=== PATIENT | male | born 1945 | race Caucasian/White ===

== ENCOUNTER 2016-06-15 12:00 | Emergency (ER) | payer OTHER ==
[~2016-06-15] VITALS: Ht 177.8 cm; Wt 73.5 kg
--- NOTE | 2016-06-15 12:42 | ED GI/GU/ABDOMINAL COMPLAINT ---
History of Present Illness General Chief Complaint: Male Genitourinary Problems Stated Complaint: URINARY RETENTION Source: patient, family, old records Exam Limitations: no limitations Vital Signs & Intake/Output Vital Signs & Intake/Output Vital Signs Date Time Temp Pulse Resp B/P Pulse O2 O2 Flow FiO2 Ox Delivery Rate 06/15 1403 60 16 115/58 96 Room Air 06/15 1304 98.5 58 18 116/56 04 1206 98.5 58 18 116/56 96 Room Air Room Air Allergies Coded Allergies: No Known Allergies (06/15/16) Reconcile Medications Benzonatate 100 MG CAPSULE 1 CAP PO TID UNK (Reported) Finasteride (Proscar) 5 MG TABLET 1 TAB PO DAILY BPH Triage Note: TRIAGE: 70 Y/O MALE PRESENTS C/O URIANRY RETENTION ADN 3-06/24 PRESSURE. ALSO C/O ?HEMORRHOID PAIN. HISTORY OF URINARY RETENTION AND ENLARGED PROSTATE. "TOOK CIALIS THIS MORNING INSTRUCTED BY DR ROBINS FOR CASES OF RETENTION." Triage Nurses Notes Reviewed? yes Onset: Morning Duration: hour(s):, constant, continues in ED Timing: recent history Quality/Severity: fullness, moderate Location: suprapubic Radiation: no radiation Activities at Onset: none Prior Abdominal Problems: similar symptoms Past Sexual History: Unobtainable at this time No Modifying Factors: none Associated Symptoms: abdominal pain, dysuria, urinary frequency HPI: 1 day prior to admission patient drank champagne that has caused him issues with urinary retention in the past. He notes since this time his urinary stream is decreased with discomfort when voiding. This morning he took Cialis as prescribed by urologist with continued urinary frequency and hesitancy. He denies fever chills nausea vomiting diarrhea chest pain cough shortness of breath headache rash bleeding. Past History Travel History Traveled to [place] past 21 day No Medical History Any Pertinent Medical History? see below for history Renal: URINARY RETENTION Surgical History Surgical History: non-contributory Psychosocial History What is your primary language [place] Tobacco Use: Never used ETOH Use: occasional use Illicit Drug Use: denies illicit drug use Family History Hx Contributory? No Review of Systems Review of Systems Constitutional: Reports: no symptoms. EENTM: Reports: no symptoms. Respiratory: Reports: no symptoms. Cardiovascular: Reports: no symptoms. GI: Reports: no symptoms. Genitourinary: Reports: see HPI, frequency, hesitation, pain, urgency. Musculoskeletal: Reports: no symptoms. Skin: Reports: no symptoms. Neurological/Psychological: Reports: no symptoms. Hematologic/Endocrine: Reports: no symptoms. Immunologic/Allergic: Reports: no symptoms. All Other Systems: Reviewed and Negative Physical Exam Physical Exam General Appearance: well developed/nourished, alert, awake, anxious, mild distress Head: atraumatic, normal appearance Eyes: Bilateral: normal appearance, PERRL, EOMI, normal inspection. Ears, Nose, Throat, Mouth: hearing grossly normal, moist mucous membrane Neck: normal inspection, supple, full range of motion, normal alignment Respiratory: normal breath sounds, chest non-tender, no respiratory distress, quiet respiration, lungs clear Cardiovascular: regular rate/rhythm, normal peripheral pulses, norml femoral pulses equa Peripheral Pulses: 4+ carotid (R), 4+ carotid (L) Gastrointestinal: normal bowel sounds, soft, non-tender, no organomegaly Male Genitals: normal genitalia Back: normal inspection, normal range of motion Extremities: normal range of motion, no ligament instability Neurologic/Psych: no motor/sensory deficits, awake, alert, oriented x 3, normal gait, 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 No Severe Sepsis Present: No Septic Shock Present: No Progress Differential Diagnosis: urinary retention, urethritis, UTI/pyelo Plan of Care: Orders Procedure Date/time Status CULTURE,URINE 06/15 123 Active URINALYSIS 06/15 1235 Complete Laboratory Tests 06/15/16 1325: Urine Color YEL, Urine Clarity CLEAR, Urine pH 6.0, Ur Specific [place] 1.020, Urine Protein NEG, Urine Ketones NEG, Urine Nitrite NEG, Urine Bilirubin NEG, Urine Urobilinogen 0.2, Ur Leukocyte Esterase NEG, Ur Microscopic SEDIMENT EXAMINED, Urine RBC RARE, Urine Mucus FEW, Urine Hemoglobin TRACE-INTACT H, Urine Glucose NEG Microbiology 06/15 1325 URINE ROUT: Urine Culture - RECD Initial ED EKG: none Departure Departure Time of Disposition: 1405 Disposition: HOME OR SELF CARE Condition: Stable Clinical Impression Primary Impression: Acute urinary retention Referrals: SHIMON PHAN,KENDALL HOWARD MD (PCP/Family) Departure Forms: Customer Survey General Discharge Information Prescriptions: Current Visit Scripts Finasteride (Proscar) 1 TAB PO DAILY #30 TAB
[2016-06-15] MEDS ORDERED: BENZONATATE100 M1 PO (13:38)
[2016-06-15] MEDS ORDERED: PROSCAR5 M1 PO (13:44)
[2016-06-15 14:03] VITALS: BP 115/58
== END 2016-06-15 14:12 ==
LOC: ERH 12:00
DX: R33.9 Retention of urine, unspecified (principal)
CPT/HCPCS: 81001; 87086

== ENCOUNTER 2017-06-25 10:47 | Inpatient (IN) | payer OTHER ==
[~2017-06-25] VITALS: Ht 177.8 cm; Wt 84.0 kg
[~2017-06-25 10:47] MED LIST: BENZONATATE100 M1 PO; PROSCAR5 M1 PO
--- NOTE | 2017-06-25 11:56 | ED GI/GU/ABDOMINAL COMPLAINT ---
History of Present Illness General Chief Complaint: Male Genitourinary Problems Stated Complaint: PRESSURE AND BACK PAIN Source: patient, family Exam Limitations: no limitations Vital Signs & Intake/Output Vital Signs & Intake/Output Vital Signs Date Time Temp Pulse Resp B/P B/P Pulse O2 O2 Flow FiO2 Mean Ox Delivery Rate 06/25 1905 110/70 06/25 1722 100/62 06/25 1648 98.2 84 18 85/47 100 Room Air 06/25 1437 75 20 106/51 96 Room Air 06/25 1428 99.4 06/25 1223 97 06/25 1053 98.6 80 20 105/58 98 Room Air Allergies Coded Allergies: No Known Allergies (06/15/16) Reconcile Medications No Known Home Medications Triage Note: PT C/O URINARY RETENTION. STATES HX OF SAME AND WAS JUST AT [facility] AND GAVE A SAMPLE FOR ANALYSIS BUT WAS WAITING TOO LONG TO BE SEEN AND LEFT TO COME HERE. PT OF DR HEARN. STATES THROUGHOUT THE NIGHT UP EVERY 10 MINUTES TO URINATE BUT ONLY A TINY AMOUNT. STATES BURNING WITH URINATION Triage Nurses Notes Reviewed? yes Onset: Gradual Duration: hour(s): Timing: single episode today Quality/Severity: moderate Severity Numbers: 8 Location: right lower back, penile HPI: 71YO MALE presents to ED complaining of dysuria beginning this morning. Patient describes pain as sharp, 8/10, constant in penile area. Patient reports right sided back pain as well. Patient was seen at [facility] this morning, had UA performed and came here because the wait time was too long. Patient has had similar symptoms in the past which he believes went away after IV antibiotics, one year ago he required catheterization to urinate. Patient states after this he followed up with urologist Dr. Crisostomo however has not required urology follow-up since then. The patient denies abdominal pain, nausea, vomiting, constipation, fevers, chills. (Paige August) Past History Travel History Traveled to [place] past 21 day No Medical History Any Pertinent Medical History? see below for history Renal: URINARY RETENTION Surgical History Surgical History: non-contributory Psychosocial History What is your primary language [place] Tobacco Use: Never used ETOH Use: denies use Illicit Drug Use: denies illicit drug use Family History Hx Contributory? No (Paieg August) Review of Systems Review of Systems Constitutional: Reports: no symptoms. EENTM: Reports: no symptoms. Respiratory: Reports: no symptoms. Cardiovascular: Reports: no symptoms. GI: Reports: see HPI. Genitourinary: Reports: see HPI. Musculoskeletal: Reports: see HPI. Skin: Reports: no symptoms. Neurological/Psychological: Reports: no symptoms. Hematologic/Endocrine: Reports: no symptoms. Immunologic/Allergic: Reports: no symptoms. All Other Systems: Reviewed and Negative (Nadine CRUZ,Paige Balderrama) Physical Exam Physical Exam General Appearance: well developed/nourished, no apparent distress, alert, awake Head: atraumatic, normal appearance Eyes: Bilateral: normal appearance. Ears, Nose, Throat, Mouth: hearing grossly normal Neck: normal inspection, supple, full range of motion Respiratory: normal breath sounds, no respiratory distress, lungs clear Cardiovascular: regular rate/rhythm Gastrointestinal: normal bowel sounds, soft, non-tender, no organomegaly Rectal: performed by Dr. Rodríguez Back: normal inspection, normal range of motion, no CVA tenderness Extremities: normal range of motion Neurologic/Psych: awake, alert, oriented x 3 Skin: intact, normal color, warm/dry Core Measures ACS in differential dx? No Sepsis Present: No Sepsis Focused Exam Completed? No (Nadine CRUZ,Paige Balderrama) Progress Differential Diagnosis: appendicitis, bowel obstruction, cholecystitis, diverticulitis, gastritis, hernia, inflamm bowel dis, prostatitis, pyelonephritis, SBO, STD, ureterolithiasis, urinary retention, urethritis, UTI/ pyelo Plan of Care: Orders Procedure Date/time Status Heart Healthy Diet 06/26 B Active CBC WITHOUT DIFFERENTIAL 06/26 0600 Active BASIC ELECTROLYTES PLUS BUN&CR 06/26 0600 Active Patient Data 06/25 1739 Active ED Holding Orders 06/25 1735 Active Admit to inpatient 06/25 1735 Active Vital Signs 06/25 1735 Active Code Status 06/25 1735 Active BLOOD CULTURE 06/25 1559 Active Add-on Test (ER Only) 06/25 1421 Active Intake & Output 06/25 1223 Active LACTIC ACID 06/25 1215 Complete CULTURE,URINE 06/25 1154 Active URINALYSIS 06/25 1154 Complete COMPREHENSIVE METABOLIC PANEL 06/25 1154 Complete CBC WITHOUT DIFFERENTIAL 06/25 1154 Complete Current Medications Sig/Audra Start time Last Medication Dose Stop Time Status Admin Morphine Sulfate 4 MG ONCE ONE 06/25 1914 UNVr 06/25 (Morphine) 06/25 Laboratory Tests 06/25/17 1613: Urine Color YEL, Urine Clarity CLDY H, Urine pH 6.0, Ur Specific [place] 1.025, Urine Protein 100 H, Urine Ketones TRACE H, Urine Nitrite NEG, Urine Bilirubin NEG, Urine Urobilinogen 0.2, Ur Leukocyte Esterase LARGE H, Ur Microscopic SEDIMENT EXAMINED, Urine RBC 50-75 H, Urine WBC PACKD H, Ur Epithelial Cells RARE, Urine Bacteria PACKD H, Urine Hemoglobin LARGE H, Urine Glucose NEG 06/25/17 1215: Anion Gap 13, Estimated GFR > 60, BUN/Creatinine Ratio 18.0, Glucose 108 H, Lactic Acid 1.7, Calcium 9.1, Total Bilirubin 1.2, AST 20, ALT 35, Alkaline Phosphatase 46, Total Protein 6.7, Albumin 3.9, Globulin 2.8, Albumin/Globulin Ratio 1.4, CBC w Diff MAN DIFF ORDERED, RBC 4.83, MCV 95.4 H, MCH 30.4, MCHC 31.8 L, RDW 13.5, MPV 8.5, Gran % 92.4 H, Lymphocytes % 2.3 L, Monocytes % 5.1, Eosinophils % 0.1, Basophils % 0.1, Absolute Granulocytes 17.5 H, Segmented Neutrophils 85 H, Band Neutrophils 7 H, Absolute Lymphocytes 0.4 L, Lymphocytes 3 L, Monocytes 4, Absolute Monocytes 1.0 H, Absolute Eosinophils 0 , Basophils 1, Absolute Basophils 0, Platelet Estimate ADEQUATE, Normocytic RBCs VERIFIED, Normochromic RBCs VERIFIED Microbiology 06/25 1624 BLOOD: Blood Culture - RECD 06/26 1619 BLOOD: Blood Culture - RECD 06/25 161 URINE ROUT: Urine Culture - RECD Dr. Rodríguez performed patient's rectal exam and reported no significant tenderness of prostate palpation. Spoke with Dr. Crisostomo regarding this patient. Admitted for infectious process. IV antibiotics and IV fluids. No surgical necessity required. Patient was able to give a urine sample. Patient started on IV ciprofloxacin. He is on second liter of IV fluids. Spoke with Dr. Galan regarding the patient - he will come see and evaluate the patient here in the emergency department. He recommends IV gentamicin and ceftriaxone. Blood pressure responding well to IV fluids. Patient stable for general medicine admission. Diagnostic Imaging: Viewed by Me: CT Scan. Discussed w/RAD: CT Scan. Radiology Impression: PATIENT: GENA CHAVEZ PRESENT AGE: 71 PATIENT ACCOUNT NO: [id number] : 46 LOCATION: [facility] ORDERING PHYSICIAN: Paige CRUZ SERVICE DATE: 06/25/17 EXAM TYPE: CAT - CT ABD & PELVIS W/O IV CONTRAS EXAMINATION: CT ABDOMEN AND PELVIS WITHOUT CONTRAST CLINICAL INFORMATION: Penile pain, right back pain COMPARISON: None TECHNIQUE: Multidetector volumetric imaging was performed from the superior aspect of the liver through the pubic symphysis. Sagittal and coronal reformatted images were obtained on the technologist's workstation. DLP: 300 mGy -cm FINDINGS: A radiodensity seen projecting over the right midlung on the pricing strategist image is external to patient. LUNG BASES: There is mild bilateral lower lobe dependent atelectasis. Trace aortic valve calcification. LIVER, GALLBLADDER, AND BILIARY TREE: The noncontrast liver is normal in size, shape, and attenuation. The gallbladder is surgically absent. The common bile duct is mildly prominent, not unexpected given prior cholecystectomy. PANCREAS: Unremarkable. SPLEEN: Normal size. Scattered calcified granulomas. ADRENAL GLANDS: Unremarkable. KIDNEYS AND URETERS: No discrete collecting system calcifications. No hydronephrosis or hydroureter. No evidence of ureterolithiasis. The kidneys are normal in contour. No perinephric stranding. Small low-density lesion noted in the upper pole of the right kidney, incompletely characterized but most likely representing a cyst. BLADDER: Unremarkable. No bladder calculi. GASTROINTESTINAL TRACT: The small and large bowel are unremarkable. The appendix is unremarkable. ABDOMINAL WALL: No significant hernia is appreciated. LYMPH NODES: No evidence of pathologic lymphadenopathy on this limited noncontrast examination. VASCULAR: Abdominal aorta is normal in caliber. There is very minimal atherosclerotic calcification. PELVIC VISCERA: The prostate gland is enlarged approximately 7 cm in diameter. There is fat stranding or adjacent to the prostate gland and rectum. There is a 1.4 cm ovoid calcification in the pelvic cul-de-sac of uncertain etiology but could be seen with remotely torsed epiploic appendage. Bilateral vasectomy clips. OSSEOUS STRUCTURES: Mild degenerative changes of the spine. IMPRESSION: No evidence of nephrolithiasis or ureterolithiasis. No hydronephrosis. Prostatomegaly. Additionally, there are inflammatory changes around the prostate gland and rectum which could represent prostatitis or proctitis. Small low-density lesion in the upper pole of the right kidney is incompletely characterized but most likely represents a cyst. Additional incidental findings as noted above. DICTATED BY: Claire Naranjo MD DATE/TIME DICTATED:06/25/171345 [employer]:MATT DATE/TIME TRANSCRIBED:1345 CONFIDENTIAL, DO NOT COPY WITHOUT APPROPRIATE AUTHORIZATION. < Electronically signed in Other Vendor System> SIGNED BY: Claire Naranjo MD 06/25/17 1415 Initial ED EKG: none (Nadine CRUZ,Paige Balderrama) Departure Departure Disposition: STILL A PATIENT Condition: Stable Clinical Impression Primary Impression: Prostatitis, acute Secondary Impressions: Dysuria Referrals: Gentry Crespo MD (PCP/Family) Departure Forms: Customer Survey General Discharge Information Prescriptions: Current Visit Scripts No Known Home Medications Admission Note Spoke With: Angelia PHAN,Cruz Castillo Documentation of Exam: Documentation of any treatments & extenuating circumstances including Concerns Regarding Discharge (functional status, medication knowledge or non-compliance, living conditions, etc.) that warrant an admission rather than observation: [ Acute likely prostatitis requiring IV antibiotics, IV fluids, urology consult, repeat labs, follow up with blood cultures, premature discharge medically unsafe ] (Paige August) Departure Comments 06/25/17 I saw and personally examined the patient and I agree with the PAs evaluation. Rectal exam was nontender prostate, guaiac negative stool. (Ciro Rodríguez DO)
[2017-06-25 12:24] LABS: ABSOLUTE BASOPHIL COUNT 0 /CUMM (0.0-0.2); ABSOLUTE EOSINOPHIL COUNT 0 /CUMM (0.0-0.7); ABSOLUTE GRANULOCYTE CT 17.5 /CUMM (1.4-6.5); ABSOLUTE LYMPH COUNT 0.4 /CUMM (1.2-3.4); BASOPHIL % 0.1 % (0.0-2.0); EOSINOPHIL % 0.1 % (0-5); HEMATOCRIT 46.1 % (42-52); MEAN CORPUSCULAR HGB 30.4 PG (27.0-31.0); MEAN CORPUSCULAR HGB CONC 31.8 G/DL (33.0-37.0); MEAN CORPUSCULAR VOLUME 95.4 FL (80.0-94.0); MEAN PLATELET VOLUME 8.5 FL (7.4-10.4); PLATELET COUNT 198 /CUMM (130-400); RBC DISTRIBUTION WIDTH 13.5 % (11.5-14.5); RED BLOOD CELL CT 4.83 /CUMM (4.70-6.10)
[2017-06-25 12:25] LABS: GRANULOCYTE % 92.4 % (42.2-75.2); WHITE BLOOD CELL COUNT 18.9 /CUMM (4.8-10.8)
--- NOTE | 2017-06-25 14:15 | CT SCAN REPORT ---
EXAMINATION: CT ABDOMEN AND PELVIS WITHOUT CONTRAST CLINICAL INFORMATION: Penile pain, right back pain COMPARISON: None TECHNIQUE: Multidetector volumetric imaging was performed from the superior aspect of the liver through the pubic symphysis. Sagittal and coronal reformatted images were obtained on the technologist's workstation. DLP: 300 mGy-cm FINDINGS: A radiodensity seen projecting over the right midlung on the staff design engineer image is external to patient. LUNG BASES: There is mild bilateral lower lobe dependent atelectasis. Trace aortic valve calcification. LIVER, GALLBLADDER, AND BILIARY TREE: The noncontrast liver is normal in size, shape, and attenuation. The gallbladder is surgically absent. The common bile duct is mildly prominent, not unexpected given prior cholecystectomy. PANCREAS: Unremarkable. SPLEEN: Normal size. Scattered calcified granulomas. ADRENAL GLANDS: Unremarkable. KIDNEYS AND URETERS: No discrete collecting system calcifications. No hydronephrosis or hydroureter. No evidence of ureterolithiasis. The kidneys are normal in contour. No perinephric stranding. Small low-density lesion noted in the upper pole of the right kidney, incompletely characterized but most likely representing a cyst. BLADDER: Unremarkable. No bladder calculi. GASTROINTESTINAL TRACT: The small and large bowel are unremarkable. The appendix is unremarkable. ABDOMINAL WALL: No significant hernia is appreciated. LYMPH NODES: No evidence of pathologic lymphadenopathy on this limited noncontrast examination. VASCULAR: Abdominal aorta is normal in caliber. There is very minimal atherosclerotic calcification. PELVIC VISCERA: The prostate gland is enlarged approximately 7 cm in diameter. There is fat stranding or adjacent to the prostate gland and rectum. There is a 1.4 cm ovoid calcification in the pelvic cul-de-sac of uncertain etiology but could be seen with remotely torsed epiploic appendage. Bilateral vasectomy clips. OSSEOUS STRUCTURES: Mild degenerative changes of the spine. IMPRESSION: No evidence of nephrolithiasis or ureterolithiasis. No hydronephrosis. Prostatomegaly. Additionally, there are inflammatory changes around the prostate gland and rectum which could represent prostatitis or proctitis. Small low-density lesion in the upper pole of the right kidney is incompletely characterized but most likely represents a cyst. Additional incidental findings as noted above.
--- NOTE | 2017-06-25 17:13 | History & Physical ---
John PHAN,[facility] 06/25/17 1713: General Information and HPI MD Statement: I have seen and personally examined GENA CHAVEZ and documented this H&P. The patient is a 71 year old M who presented with a patient stated chief complaint of [urinary retention and dysuria]. Source of Information: patient, old records Exam Limitations: no limitations History of Present Illness: The patient is 71-year-old gentleman with no significant past medical history who presented to [place] ED on 06/25 with complaint of dysuria. The patient is healthy gentleman who runs 5 miles a day. Does not have any significant past medical history other than prostate biopsy a year ago because of elevated PSA which turned out to be negative. The patient woke up about 5 AM the morning and had severe pain while urination. Patient states that he was having suprapubic tenderness and sensation of incomplete voiding. He reports a sharp burning pain in the shaft of the penis, nonradiating 10 out of 10. Patient reports dribbling at the end of urination and pressure sensation at the start of urination. Patient went up [facility] earlier this morning. UA was done over there. But he left because he did not want to wait any longer. Review of system is positive for chills. Denies any other symptoms. Allergies/Medications Allergies: Coded Allergies: No Known Allergies (06/15/16) Home Med list No Known Home Medications Past History Travel History Traveled to [place] past 21 day No Medical History Renal: URINARY RETENTION Surgical History Surgical History: non-contributory Past Family/Social History Family History Relations & Conditions if any Relation not specified for: *No pertinent family history Psychosocial History Who Do You Live With? spouse Services at Home: None Primary Language: Finnish ETOH Use: denies use Illicit Drug Use: denies illicit drug use Review of Systems Review of Systems Constitutional: Reports: see HPI, chills. Cardiovascular: Reports: no symptoms. Respiratory: Reports: no symptoms. Genitourinary: Reports: no symptoms. Exam & Diagnostic Data Last 24 Hrs of Vital Signs/I&O Vital Signs Date Time Temp Pulse Resp B/P B/P Pulse O2 O2 Flow FiO2 Mean Ox Delivery Rate 06/25 1905 110/70 06/25 1722 100/62 06/25 1648 98.2 84 18 85/47 100 Room Air 06/25 1437 75 20 106/51 96 Room Air 06/25 1428 99.4 06/25 1223 97 06/25 1053 98.6 80 20 105/58 98 Room Air Intake & Output 06/25 1600 06/25 0800 06/25 0000 Intake Total 1000 Output Total Balance 1000 Intake, IV 1000 Patient 160 lb Weight Weight Reported by Patient Measurement Method Physical Exam General Appearance Alert, Oriented X3, Cooperative, No Acute Distress HEENT Atraumatic Lungs Clear to Auscultation Abdomen Normal Bowel Sounds, suprapubic tenderness Neurological Normal Speech Extremities No Edema Sepsis Peripheral Pulse Location: Radial Sepsis Peripheral Pulse Exam: Normal Sepsis Cap Refill Exam: <2 Sec Rectal Guiac Negative, performed by ED physician, no tenderness on palpation Last 24 Hrs of Labs/Everardo: Laboratory Tests 06/25/17 1613: Urine Color YEL, Urine Clarity CLDY H, Urine pH 6.0, Ur Specific [place] 1.025, Urine Protein 100 H, Urine Ketones TRACE H, Urine Nitrite NEG, Urine Bilirubin NEG, Urine Urobilinogen 0.2, Ur Leukocyte Esterase LARGE H, Ur Microscopic SEDIMENT EXAMINED, Urine RBC 50-75 H, Urine WBC PACKD H, Ur Epithelial Cells RARE, Urine Bacteria PACKD H, Urine Hemoglobin LARGE H, Urine Glucose NEG 06/25/17 1215: Anion Gap 13, Estimated GFR > 60, BUN/Creatinine Ratio 18.0, Glucose 108 H, Lactic Acid 1.7, Calcium 9.1, Total Bilirubin 1.2, AST 20, ALT 35, Alkaline Phosphatase 46, Total Protein 6.7, Albumin 3.9, Globulin 2.8, Albumin/Globulin Ratio 1.4, CBC w Diff MAN DIFF ORDERED, RBC 4.83, MCV 95.4 H, MCH 30.4, MCHC 31.8 L, RDW 13.5, MPV 8.5, Gran % 92.4 H, Lymphocytes % 2.3 L, Monocytes % 5.1, Eosinophils % 0.1, Basophils % 0.1, Absolute Granulocytes 17.5 H, Segmented Neutrophils 85 H, Band Neutrophils 7 H, Absolute Lymphocytes 0.4 L, Lymphocytes 3 L, Monocytes 4, Absolute Monocytes 1.0 H, Absolute Eosinophils 0 , Basophils 1, Absolute Basophils 0, Platelet Estimate ADEQUATE, Normocytic RBCs VERIFIED, Normochromic RBCs VERIFIED Microbiology 06/25 162 BLOOD: Blood Culture - RECD 04/11 1620 BLOOD: Blood Culture - RECD 06/25 1613 URINE ROUT: Urine Culture - RECD Diagnostic Data Other Results CT ABD & PELVIS W/O IV CONTRAST No evidence of nephrolithiasis or ureterolithiasis. No hydronephrosis. Prostatomegaly. Additionally, there are inflammatory changes around the prostate gland and rectum which could represent prostatitis or proctitis. Small low-density lesion in the upper pole of the right kidney is incompletely characterized but most likely represents a cyst. Assessment/Plan Assessment: The patient is 71-year-old gentleman with no significant past medical history who presented to [place] ED on 06/25 with complaint of dysuria. Admission vitals BP on softer side 85/47 Admission labs significant for leukocytosis up to 18.9 with left shift, 7 bands. UA is positive for large leukocyte esterase, packed with WBCs and packed with bacteria. Imaging findings dictated above The patient is being admitted to general medicine floor and treated and evaluated for following conditions #Sepsis 2/2 Acute prostatitis Patient presentation with leukocytosis and, bandemia, dirty UA and CT scan finding of prostatomegaly with inflammation, consistent with acute prostatitis. He was febrile as well in ED. SIRS positive, qSOFA score (SPBP <100) 1 point not high risk. Of note pt is a runner so his BP dose run on the lower side. Ecoli more likely as compared to Gonnorehea/ chlamydia. Pt is in monogamous relationship with his -Admit to gen med -Monitor fever and WBC curve -Follow-up blood cultures and urine culture -IV ciprofloxacin 500 twice a day -Gentle IV hydration -Adequate analgesia, Tylenol for fever -We are going to check postvoid residual for urinary retention and will avoid Foleys -Urology consult has been placed with Dr. Crisostomo Regular Diet/DVT prophylaxis with Lovenox/FC As Ranked By This Provider Problem List: 1. Prostatitis, acute Core Measures/Misc (12/01) Acute Coronary Syndrome ACS Diagnosis: No Congestive Heart Failure Congestive Heart Failure Diagnosis No Cerebrovascular Accident CVA/TIA Diagnosis: No VTE (View Protocol) VTE Risk Factors Age>40 No Mechanical VTE Prophylaxis d/t N/A MechProphylax Ordered No VTE Pharm Prophylaxis d/t NA PharmProphylax ordered Sepsis (View protocol) Sepsis Present: Yes Ruiz PHAN,Corbin 06/25/17 1731: Resident Review Statement Resident Statement: examined this patient, discussed with medical assistant internal medicine, agreed with medical assistant internal medicine Other Findings: 71-year-old gentleman with no known significant past medical history since for evaluation of acute onset of severe symptoms of dysuria and penile pain suggestive of prostatitis in the setting of leukocytosis and CT finding of enlarged prostate. Associated symptoms included chills. denied any recent pelvic fracture . Of note patient has had prostate instrumentation in the past few years and is actively followed by Dr. Crisostomo. Impression * Prostatitis, most likely acute. BPH is always in the differential, however the fevers, severe pain, leukocytosis and bandemia is more suggestive of an acute infectious etiology. * Leukocytosis * Sepsis as evident by positive UA, leukocytosis and a temperature of 102.1 Plan Admit to general medicine floor Continue ciprofloxacin 400 mg IV twice a day as this is a very effective antibiotic regimen for prostatitis in patient of 71 years of age who does not engage in risky sexual behaviour. Coverage is geared towards E.coli and the other comon gram negative. Discontinue ceftriaxone and gentamicin. Adequate IV fluid hydration Adequate pain management Urology consult tomorrow morning Will avoid Russell Galan MD,[facility] 06/25/17 1915: Attending MD Review Statement Attending Statement Attending MD Statement: examined this patient, discuss w/resident/PA/FISH STRINGER ASSEMBLER, agreed w/resident/PA/FISH STRINGER ASSEMBLER, discussed with family, reviewed EMR data (avail), discussed with nursing, discussed with case mgmt, reviewed images, amended to note Attending Assessment/Plan: Seen and examined independently in the emergency room Very healthy gentleman with previous history of enlarged prostate 2 wakes up 5 times at night, previous history of prostate biopsy more than a year ago with elevated PSA came into the hospital with acute onset dysuria. Patient was having difficulty emptying his bladder. He did have a urinalysis done early this morning at [facility] but he didn't want to wait in the emergency room he came into this hospital. Since he is here he did have a CT scan which did show that he may have significant prostatitis initial blood work was suggestive of prostatitis and he is now being admitted. Issues Acute prostatitis with sepsis No clinical evidence suggestive of inflammation of his rectum Enlarged prostate in the past with previous biopsy many years ago rule out malignancy the future Significant leukocytosis with bandemia from sepsis RECOMMENDATION Intravenous fluids Intravenous Cipro Patient has received a dose of gentamicin - we'll await his cultures if needed we'll repeat that tomorrow Check his renal function Tylenol for fever Check post void residue for urine Avoid [facility] consult Check PT/INR Repeat bilirubin and LFTs in the morning
--- NOTE | 2017-06-25 19:15 | Admission Certification ---
Admission Certification Certification Statement - As attending physician, I certify that at the time of - admission, based on clinical presentation, severity of - symptoms, need for further diagnostic testing and - therapeutic interventions, and risk of adverse outcomes - without in-hospital treatment, in my clinical assessment, - this patient requires an acute hospital stay for a minimum - of two nights or longer. I have also considered psychsocial - factors such as support system, advanced age, financial - issues, cognitive issues, and failed out-patient treatments, - past re-admission history, safety of patient, and lack of - compliance as applicable. Specific rationale supporting this admission is: sepsis and prostatitits
[2017-06-25 21:41] VITALS: BP 80/40
[2017-06-26 01:28] VITALS: BP 96/46
[2017-06-26 02:33] VITALS: BP 88/46
[2017-06-26 06:38] VITALS: BP 106/48
[2017-06-26 08:19] LABS: ABSOLUTE BASOPHIL COUNT 0 /CUMM (0.0-0.2); ABSOLUTE EOSINOPHIL COUNT 0.1 /CUMM (0.0-0.7); ABSOLUTE LYMPH COUNT 1.1 /CUMM (1.2-3.4); ABSOLUTE MONOCYTE COUNT 0.9 /CUMM (0.10-0.60); GRANULOCYTE % 89.9 % (42.2-75.2); MEAN CORPUSCULAR HGB CONC 34.2 G/DL (33.0-37.0); WHITE BLOOD CELL COUNT 21.1 /CUMM (4.8-10.8)
[2017-06-26 08:26] LABS: ABSOLUTE GRANULOCYTE CT 18.9 /CUMM (1.4-6.5); BASOPHIL % 0.2 % (0.0-2.0); EOSINOPHIL % 0.3 % (0-5); MEAN CORPUSCULAR HGB 32.6 PG (27.0-31.0); MEAN CORPUSCULAR VOLUME 95.1 FL (80.0-94.0); MEAN PLATELET VOLUME 8.8 FL (7.4-10.4); PLATELET COUNT 147 /CUMM (130-400)
[2017-06-26 08:29] LABS: PT 18.1 SEC (9.4-12.5)
[2017-06-26 08:32] LABS: HEMATOCRIT 36.2 % (42-52)
[2017-06-26 08:54] VITALS: BP 96/50
--- NOTE | 2017-06-26 09:08 | PN- Housestaff ---
Subjective Follow-up For: Sepsis 2/2 Acute prostatitis Subjective: seen and examined. pt walking briskly in the hallway, reports improvement in symptoms, denies pain, has not been taking pain medicatiosn uneventful night fever upto 102 WBC count uptrending 21 H/H and platelet count dropped 2/2 to IV fluid hydartion BC x1 positive for gram negative rods UC positive for gram negative rods Review of Systems Constitutional: Reports: see HPI. Objective Last 24 Hrs of Vital Signs/I&O Vital Signs Date Time Temp Pulse Resp B/P B/P Pulse O2 O2 Flow FiO2 Mean Ox Delivery Rate 06/26 0854 96/50 06/26 0638 98.5 68 20 106/48 94 Room Air 06/26 0233 88/46 06/26 0128 96/46 06/25 2155 99.0 06/25 2141 99.6 64 20 80/40 95 Room Air 06/25 2111 102.1 80 20 90/42 95 Room Air 06/25 1905 110/70 06/25 1722 100/62 06/25 1648 98.2 84 18 85/47 100 Room Air 06/25 1437 75 20 106/51 96 Room Air 06/25 1428 99.4 06/25 1223 97 06/25 1053 98.6 80 20 105/58 98 Room Air Intake & Output 06/26 1600 06/26 0800 06/26 0000 Intake Total 820 150 Output Total Balance 820 150 Intake, IV 700 100 Intake, Oral 120 50 Patient 185 lb Weight Weight Bed scale Measurement Method Physical Exam General Appearance: Alert, Oriented X3, Cooperative Cardiovascular: Normal S1, Normal S2 Lungs: Clear to Auscultation Abdomen: Normal Bowel Sounds, Soft, No Tenderness Neurological: Normal Gait, Normal Speech Current Medications: Current Medications Sig/Audra Start time Last Medication Dose Route Stop Time Status Admin Acetaminophen 0 .STK-MED ONE 06/25 2118 DC PO Acetaminophen 500 MG Q6P PRN 06/25 2014 AC 06/25 PO 2115 Acetaminophen 1,000 MG ONCE ONE 06/25 1699 DC N/A 1 UNIT IV 06/25 1713 Ceftriaxone Sodium 0 .STK-MED ONE 06/25 1918 DC .ROUTE Ceftriaxone Sodium 1,000 MG ONCE ONE 06/25 1714 DC 06/25 IV 06/25 Ciprofloxacin 400 MG Q12H 06/26 0400 AC 06/26 Dextrose/Water 200 ML IV 0351 Ciprofloxacin 400 MG ONCE ONE 06/25 1600 DC 06/25 Dextrose/Water 200 ML IV 06/25 1659 1647 Enoxaparin Sodium 40 MG DAILY 06/26 1000 AC SC Gentamicin Sulfate 100 MG ONE ONE 06/25 1715 DC 06/25 Dextrose/Water 100 ML IV 06/25 1744 2007 Ketorolac 0 .STK-MED ONE 06/25 1305 DC Tromethamine .ROUTE Ketorolac 30 MG ONCE ONE 06/25 1300 DC 06/25 Tromethamine IV 06/25 1301 1350 Morphine Sulfate 2 MG Q4P PRN 06/25 2014 AC IV Morphine Sulfate 0 .STK-MED ONE 06/25 191 DC .ROUTE Morphine Sulfate 4 MG ONCE ONE 06/25 191 DC 06/25 IV 06/25 1916 1918 Morphine Sulfate 0 .STK-MED ONE 06/25 1305 DC .ROUTE Morphine Sulfate 4 MG ONCE ONE 06/25 1300 DC 06/25 IV 06/25 1301 1350 Morphine Sulfate 0 .STK-MED ONE 06/25 1224 DC .ROUTE Morphine Sulfate 2 MG ONCE ONE 06/25 1215 DC 06/25 IV 06/25 1216 1221 Oxycodone HCl 5 MG Q6P PRN 06/25 2014 AC PO Sodium Chloride 1,000 ML Q10H 06/25 2145 AC 06/26 IV 0838 Sodium Chloride 1,000 ML BOLUS ONE 06/25 2145 DC 06/25 IV 06/25 2244 2155 Sodium Chloride 1,000 ML BOLUS ONE 06/25 1700 DC 06/25 IV 06/25 1759 1657 Sodium Chloride 1,000 ML BOLUS ONE 06/25 1215 DC 06/25 IV 06/25 1314 1221 Last 24 Hrs of Lab/Everardo Results Last 24 Hrs of Labs/Mics: Laboratory Tests 06/26/17 0723: Anion Gap 8, Estimated GFR > 60, BUN/Creatinine Ratio 20.0, Total Bilirubin 1.4 H, Direct Bilirubin 0.4, AST 24, ALT 33, Alkaline Phosphatase 38, Total Protein 5.1 L, Albumin 2.6 L, PT 18.1 H, INR 1.65 H, CBC w Diff MAN DIFF ORDERED, RBC 3.80 L, MCV 95.1 H, MCH 32.6 H, MCHC 34.2, RDW 14.0, MPV 8.8, Gran % 89.9 H, Lymphocytes % 5.5 L, Monocytes % 4.1, Eosinophils % 0.3, Basophils % 0.2, Absolute Granulocytes 18.9 H, Segmented Neutrophils 80 H, Band Neutrophils 13 H, Absolute Lymphocytes 1.1 L, Lymphocytes 2 L, Monocytes 4, Absolute Monocytes 0.9 H, Absolute Eosinophils 0.1, Basophils 1, Absolute Basophils 0, Platelet Estimate ADEQUATE, Normocytic RBCs VERIFIED, Normochromic RBCs VERIFIED 06/25/17 1613: Urine Color YEL, Urine Clarity CLDY H, Urine pH 6.0, Ur Specific [place] 1.025, Urine Protein 100 H, Urine Ketones TRACE H, Urine Nitrite NEG, Urine Bilirubin NEG, Urine Urobilinogen 0.2, Ur Leukocyte Esterase LARGE H, Ur Microscopic SEDIMENT EXAMINED, Urine RBC 50-75 H, Urine WBC PACKD H, Ur Epithelial Cells RARE, Urine Bacteria PACKD H, Urine Hemoglobin LARGE H, Urine Glucose NEG 06/25/17 1215: Anion Gap 13, Estimated GFR > 60, BUN/Creatinine Ratio 18.0, Glucose 108 H, Lactic Acid 1.7, Calcium 9.1, Total Bilirubin 1.2, AST 20, ALT 35, Alkaline Phosphatase 46, Total Protein 6.7, Albumin 3.9, Globulin 2.8, Albumin/Globulin Ratio 1.4, CBC w Diff MAN DIFF ORDERED, RBC 4.83, MCV 95.4 H, MCH 30.4, MCHC 31.8 L, RDW 13.5, MPV 8.5, Gran % 92.4 H, Lymphocytes % 2.3 L, Monocytes % 5.1, Eosinophils % 0.1, Basophils % 0.1, Absolute Granulocytes 17.5 H, Segmented Neutrophils 85 H, Band Neutrophils 7 H, Absolute Lymphocytes 0.4 L, Lymphocytes 3 L, Monocytes 4, Absolute Monocytes 1.0 H, Absolute Eosinophils 0 , Basophils 1, Absolute Basophils 0, Platelet Estimate ADEQUATE, Normocytic RBCs VERIFIED, Normochromic RBCs VERIFIED Microbiology 06/25 1624 BLOOD: Blood Culture - RES GRAM NEGATIVE RODS 06/26 1619 BLOOD: Blood Culture - RECD 06/25 161 URINE ROUT: Urine Culture - RES GRAM NEGATIVE RODS Assessment/Plan Assessment: The patient is 71-year-old gentleman with no significant past medical history who presented to [place] ED on 06/25 with complaint of dysuria. Admission vitals BP on softer side 85/47 Admission labs significant for leukocytosis up to 18.9 with left shift, 7 bands. UA is positive for large leukocyte esterase, packed with WBCs and packed with bacteria. Imaging findings consistent with prostatitis He is under evaluation/treatment for following conditions. #Sepsis 2/2 Acute prostatitis Patient presentation with leukocytosis and, bandemia, dirty UA and CT scan finding of prostatomegaly with inflammation, consistent with acute prostatitis. He was febrile overnight. SIRS positive, qSOFA score (SPBP <100) 1 point not high risk. Of note pt is a runner so his BP dose run on the lower side.Ecoli more likely as compared to Gonnorehea/ chlamydia. Pt is in monogamous relationship with his -Admit to gen med -Monitor fever and WBC curve febrile upto 102 white count trending up to 21 -Follow-up blood cultures and urine culture-positive for gram-negative rods, sensitivities pending -On IV cipro, will get ID regarding abx, ceftriaxone?? -Gentle IV hydration -Adequate analgesia, Tylenol for fever -We are going to check postvoid residual for urinary retention and will avoid Foleys -Urology consult has been placed with Dr. Crisostomo Regular Diet/DVT prophylaxis with Lovenox/FC Problem List: 1. Prostatitis, acute Pain Ratin Pain Location: suprapubic and penis Pain Goal: Pain 4 or less Pain Plan: prn Tomorrow's Labs & Rationales: cbc
[2017-06-26 14:40] VITALS: BP 100/60
--- NOTE | 2017-06-26 16:55 | Cons- Infect Disease ---
General Information and HPI Consulting Request Date of Consult: 06/26/17 Requested By: Angelia PHAN,Cruz Castillo Reason for Consult: Positive blood and urine cultures for gram negative rods Source of Information: patient History of Present Illness: This is a 71-year-old man with a history of BPH, with nocturia for several years , admitted on June 25 after presenting to the emergency room because of the acute onset of suprapubic discomfort, difficulty in voiding and dysuria associated with chills. On admission he was afebrile. A rectal exam was apparently nontender. Laboratory data revealed a white blood cell count of 19, 000, with 85 segs and 7 bands, BUN/creatinine 18 and 1.0, with normal liver enzymes, INR 1.65. Urinalysis 50-75 RBCs/packed WBCs. CT of the abdomen and pelvis revealed an enlarged prostate with inflammatory changes around the prostate gland and rectum, with no nephrolithiasis or hydronephrosis. He was given Ceftriaxone and Gentamicin in the emergency room and was then changed to Ciprofloxacin. He developed a fever to 102.1 in the evening but has been afebrile since and he feels improved today with no further dysuria or suprapubic discomfort. This morning one blood culture and his urine culture were reported positive for gram-negative rods. Allergies/Medications Allergies: Coded Allergies: No Known Allergies (06/15/16) Home Med List: No Known Home Medications Past History Travel History Traveled to [place] past 21 day No Medical History Neurological: NONE EENT: NONE Cardiovascular: NONE Respiratory: NONE Gastrointestinal: NONE Hepatic: NONE Musculoskeletal: NONE Psychiatric: NONE Endocrine: NONE Blood Disorders: NONE Cancer(s): NONE PORCELAIN ENAMELER/Reproductive: NONE History of MRSA: No History of VRE: No History of CDIFF: No Isolation History: Standard Influenza Vaccine: 01/01/17 Surgical History Surgical History: non-contributory Family History Relations & Conditions If Any: Relation not specified for: *No pertinent family history Psychosocial History Where Do You Live? Home Who Do You Live With? spouse Services at Home: None Primary Language: Slovak Smoking Status: Former Smoker ETOH Use: denies use Illicit Drug Use: denies illicit drug use Review of Systems Review of Systems Constitutional: Reports: chills. Genitourinary: Reports: dysuria, frequency, hesitation, nocturia, pain. All Other Systems: Reviewed and Negative Exam & Diagnostic Data Last 24 Hrs of Vital Signs/I&O Vital Signs Date Time Temp Pulse Resp B/P B/P Pulse O2 O2 Flow FiO2 Mean Ox Delivery Rate 06/26 1440 99.6 70 20 100/60 96 Room Air 06/26 0854 96/50 06/26 0638 98.5 68 20 106/48 94 Room Air 06/26 0233 88/46 06/26 0128 96/46 06/25 2155 99.0 06/25 2141 99.6 64 20 80/40 95 Room Air 06/25 2111 102.1 80 20 90/42 95 Room Air 06/25 1905 110/70 06/25 1722 100/62 Intake & Output 06/26 1600 06/26 0800 06/26 0000 Intake Total 1600 820 150 Output Total Balance 1600 820 150 Intake, IV 1000 700 100 Intake, Oral 600 120 50 Patient 185 lb Weight Weight Bed scale Measurement Method Physical Exam Other Physical Findings: MAXIMUM TEMPERATURE 102.1. He is awake and alert in no acute distress. Skin reveals no rash. HEENT negative. Neck is supple with no adenopathy. Lungs are clear. Heart regular rhythm with no murmur. Abdomen is soft, nontender with positive bowel sounds. Back no CVA tenderness. Extremities no cyanosis, clubbing or edema. Neuro is without focality. Last 24 Hours of Lab Results: Laboratory Tests 06/26 0723 Chemistry Sodium (137 - 145 mmol/L) 136 L Potassium (3.5 - 5.1 mmol/L) 4.0 Chloride (98 - 107 mmol/L) 105 Carbon Dioxide (22 - 30 mmol/L) 23 Anion Gap (5 - 16) 8 BUN (9 - 20 mg/dL) 22 H Creatinine (0.7 - 1.2 mg/dL) 1.1 Estimated GFR (>60 ml/min) > 60 BUN/Creatinine Ratio (7 - 25 %) 20.0 Total Bilirubin (0.2 - 1.3 mg/dL) 1.4 H Direct Bilirubin (< 0.4 mg/dL) 0.4 AST (17 - 59 U/L) 24 ALT (21 - 72 U/L) 33 Alkaline Phosphatase (< 127 U/L) 38 Total Protein (6.3 - 8.2 g/dL) 5.1 L Albumin (3.5 - 5.0 g/dL) 2.6 L Coagulation PT (9.4 - 12.5 SEC) 18.1 H INR (0.90 - 1.17) 1.65 H Hematology CBC w Diff MAN DIFF ORDERED WBC (4.8 - 10.8 /CUMM) 21.1 H RBC (4.70 - 6.10 /CUMM) 3.80 L Hgb (14.0 - 18.0 G/DL) 12.4 L Hct (42 - 52 %) 36.2 L MCV (80.0 - 94.0 FL) 95.1 H MCH (27.0 - 31.0 PG) 32.6 H MCHC (33.0 - 37.0 G/DL) 34.2 RDW (11.5 - 14.5 %) 14.0 Plt Count (130 - 400 /CUMM) 147 MPV (7.4 - 10.4 FL) 8.8 Gran % (42.2 - 75.2 %) 89.9 H Lymphocytes % (20.5 - 51.1 %) 5.5 L Monocytes % (1.7 - 9.3 %) 4.1 Eosinophils % (0 - 5 %) 0.3 Basophils % (0.0 - 2.0 %) 0.2 Absolute Granulocytes (1.4 - 6.5 /CUMM) 18.9 H Segmented Neutrophils (42.2 - 75.2 %) 80 H Band Neutrophils (0.0 - 5.0 %) 13 H Absolute Lymphocytes (1.2 - 3.4 /CUMM) 1.1 L Lymphocytes (20.5 - 51.1 %) 2 L Monocytes (1.7 - 9.3 %) 4 Absolute Monocytes (0.10 - 0.60 /CUMM) 0.9 H Absolute Eosinophils (0.0 - 0.7 /CUMM) 0.1 Basophils (0.0 - 2.0 %) 1 Absolute Basophils (0.0 - 0.2 /CUMM) 0 Platelet Estimate (ADEQUATE) ADEQUATE Normocytic RBCs VERIFIED Normochromic RBCs VERIFIED Last 24 Hours of Everardo Results: Blood cultures June 25 one bottle positive for gram-negative rods Urine culture June 25 greater than 100,000 colonies of gram-negative rods Diagnostic Data Recent Imaging Findings: CT of the abdomen and pelvis June 25 reveals prostatomegaly with inflammatory changes around the prostate gland and rectum with no hydronephrosis or nephrolithiasis Assessment/Plan Assessment/Plan Impression: This is a 71-year-old man with a history of BPH admitted on June 25 with the acute onset of suprapubic discomfort, difficulty in voiding and dysuria, associated with chills, found initially to be afebrile, with a leukocytosis, with the development of a fever in the evening, with his blood and urine cultures reported positive today for gram negative rods. His presentation is consistent with sepsis of urologic origin. His CT scan does suggest inflammation around the prostate which could suggest prostatitis, though his rectal exam was reportedly nontender. His infection is presumably related to his BPH and Urology reevaluation would be helpful in managing this. His antibiotics can be adjusted pending final cultures, but he will require a minimum of 2 weeks and, possibly, longer (if he is felt to have prostatitis). Suggestion: 1. Urology evaluation 2. Follow-up final cultures 3. Discontinue Ciprofloxacin 4. Restart Ceftriaxone 1 g IV every 24 hours pending above Consult Acknowledgment - Thank you for your consult request.
--- NOTE | 2017-06-26 20:01 | PN- Att Addend ---
Attending Addendum Attending Brief Note 71-year-old white male admitted with UTI and sepsis of urological origin. Both urine and blood culture showed gram-negative rads patient was seen by infectious diseases antibiotics were adjusted patient says he feels better patient only feels a chill got up and ambulated. Last temperature 99.6 temp max was 102. His first white count was elevated. Will continue IV antibiotics as recommended by Dr. Yost , follow-up temperatures and CBC. 24 TOTALS 06/26 0000 06/25 0000 Intake Total 1150 Output Total Balance 1150 Intake, IV 1100 Intake, Oral 50 Patient 185 lb Weight Weight Bed scale Measurement Method Current Medications Sig/Audra Start time Last Medication Dose Route Stop Time Status Admin Acetaminophen 0 .STK-MED ONE 06/25 2119 DC PO Acetaminophen 500 MG Q6P PRN 06/25 2014 AC 06/26 PO 1609 Ceftriaxone Sodium 1,000 MG DAILY 06/26 1452 AC 06/26 IV 1659 Ciprofloxacin 400 MG Q12H 06/26 0400 DC 06/26 Dextrose/Water 200 ML IV 0351 Enoxaparin Sodium 40 MG DAILY 06/26 1000 AC SC Morphine Sulfate 2 MG Q4P PRN 06/25 2014 AC IV Oxycodone HCl 5 MG Q6P PRN 06/25 2014 AC PO Patient Medication 1 ED ONE ONE 06/26 1130 [place] Teaching ED 06/26 1131 Sodium Chloride 1,000 ML Q10H 06/25 2145 DC 06/26 IV 0838 Sodium Chloride 1,000 ML BOLUS ONE 06/25 2145 DC 06/25 IV 06/25 2244 2155 Laboratory Tests 06/26/17 0723: Anion Gap 8, Estimated GFR > 60, BUN/Creatinine Ratio 20.0, Total Bilirubin 1.4 H, Direct Bilirubin 0.4, AST 24, ALT 33, Alkaline Phosphatase 38, Total Protein 5.1 L, Albumin 2.6 L, PT 18.1 H, INR 1.65 H, CBC w Diff MAN DIFF ORDERED, RBC 3.80 L, MCV 95.1 H, MCH 32.6 H, MCHC 34.2, RDW 14.0, MPV 8.8, Gran % 89.9 H, Lymphocytes % 5.5 L, Monocytes % 4.1, Eosinophils % 0.3, Basophils % 0.2, Absolute Granulocytes 18.9 H, Segmented Neutrophils 80 H, Band Neutrophils 13 H, Absolute Lymphocytes 1.1 L, Lymphocytes 2 L, Monocytes 4, Absolute Monocytes 0.9 H, Absolute Eosinophils 0.1, Basophils 1, Absolute Basophils 0, Platelet Estimate ADEQUATE, Normocytic RBCs VERIFIED, Normochromic RBCs VERIFIED 06/25/17 1613: Urine Color YEL, Urine Clarity CLDY H, Urine pH 6.0, Ur Specific [place] 1.025, Urine Protein 100 H, Urine Ketones TRACE H, Urine Nitrite NEG, Urine Bilirubin NEG, Urine Urobilinogen 0.2, Ur Leukocyte Esterase LARGE H, Ur Microscopic SEDIMENT EXAMINED, Urine RBC 50-75 H, Urine WBC PACKD H, Ur Epithelial Cells RARE, Urine Bacteria PACKD H, Urine Hemoglobin LARGE H, Urine Glucose NEG 06/25/17 1215: Anion Gap 13, Estimated GFR > 60, BUN/Creatinine Ratio 18.0, Glucose 108 H, Lactic Acid 1.7, Calcium 9.1, Total Bilirubin 1.2, AST 20, ALT 35, Alkaline Phosphatase 46, Total Protein 6.7, Albumin 3.9, Globulin 2.8, Albumin/Globulin Ratio 1.4, CBC w Diff MAN DIFF ORDERED, RBC 4.83, MCV 95.4 H, MCH 30.4, MCHC 31.8 L, RDW 13.5, MPV 8.5, Gran % 92.4 H, Lymphocytes % 2.3 L, Monocytes % 5.1, Eosinophils % 0.1, Basophils % 0.1, Absolute Granulocytes 17.5 H, Segmented Neutrophils 85 H, Band Neutrophils 7 H, Absolute Lymphocytes 0.4 L, Lymphocytes 3 L, Monocytes 4, Absolute Monocytes 1.0 H, Absolute Eosinophils 0 , Basophils 1, Absolute Basophils 0, Platelet Estimate ADEQUATE, Normocytic RBCs VERIFIED, Normochromic RBCs VERIFIED Vital Signs Date Time Temp Pulse Resp B/P B/P Pulse O2 O2 Flow FiO2 Mean Ox Delivery Rate 06/26 1440 99.6 70 20 100/60 96 Room Air 06/26 0854 96/50 06/26 0638 98.5 68 20 106/48 94 Room Air 06/26 0233 88/46 06/26 0128 /06/25 2155 99.0 06/25 2141 99.6 64 20 80/40 95 Room Air 06/25 2111 102.1 80 20 90/42 95 Room Air
[2017-06-26 21:23] VITALS: BP 92/46
[2017-06-27 06:11] VITALS: BP 122/60
--- NOTE | 2017-06-27 07:22 | Cons- Urology ---
General Information and HPI Consulting Request Date of Consult: 06/27/17 Requested By: Gentry Crespo MD Reason for Consult: acute prostatitis Source of Information: patient, old records Exam Limitations: no limitations Allergies/Medications Allergies: Coded Allergies: No Known Allergies (06/15/16) Home Med List: No Known Home Medications Current Medications: Current Medications Sig/Audra Start time Last Medication Dose Route Stop Time Status Admin Acetaminophen 500 MG .STK-MED ONE 06/26 2236 DC PO 06/26 2237 Acetaminophen 500 MG .STK-MED ONE 06/26 1536 DC PO 06/26 1537 Acetaminophen 500 MG Q6P PRN 06/25 2014 AC 06/26 PO 2239 Ceftriaxone Sodium 1,000 MG DAILY 06/26 1452 AC 06/26 IV 1659 Ciprofloxacin 400 MG Q12H 06/26 0400 DC 06/26 Dextrose/Water 200 ML IV 0351 Enoxaparin Sodium 40 MG DAILY 06/26 1000 AC SC Morphine Sulfate 2 MG Q4P PRN 06/25 2014 AC IV Oxycodone HCl 5 MG Q6P PRN 06/25 2014 AC PO Patient Medication 1 ED ONE ONE 06/26 1130 [place] Teaching ED 06/26 1131 Sodium Chloride 1,000 ML Q10H 06/25 2145 DC 06/26 IV 0838 Past History Medical History Neurological: NONE EENT: NONE Cardiovascular: NONE Respiratory: NONE Gastrointestinal: NONE Hepatic: NONE Musculoskeletal: NONE Psychiatric: NONE Endocrine: NONE Blood Disorders: NONE Cancer(s): NONE PRIMER CHARGER/Reproductive: NONE Surgical History Pertinent Surgical History: non-contributory Family History Relations & Conditions If Any: Relation not specified for: *No pertinent family history Psychosocial History Where Do You Live? Home Who Do You Live With? spouse Services at Home: None Primary Language: Lithuanian Smoking Status: Former Smoker ETOH Use: denies use Illicit Drug Use: denies illicit drug use Functional Ability ADLs Independent: dressing, eating, toileting, bathing. Ambulation: independent IADLs Independent: shopping, housework, finances, food prep, telephone, transportation , medication admin. Employment History Retired? yes Exam & Diagnostic Data Vital Signs and I&O Vital Signs Date Time Temp Pulse Resp B/P B/P Pulse O2 O2 Flow FiO2 Mean Ox Delivery Rate 06/27 0611 98.7 62 20 122/60 96 Room Air 06/26 2355 99.7 06/26 2338 99.7 06/269 100.1 06/26 2122 100.1 69 18 92/46 94 Room Air 06/26 1440 99.6 70 20 100/60 96 Room Air 06/26 0854 96/50 Intake & Output 06/27 0800 06/27 0000 06/26 1600 06/26 0806/26 0000 06/25 1600 Intake Total 120 2020 1600 568 638 2638 Output Total 1800 Balance 662 653 3297 422 976 5168 Intake, IV 20 1000 267 757 6222 Intake, Oral 120 2000 600 120 50 Number 0 Bowel Movements Output, Urine 1800 Patient 185 lb 160 lb Weight Weight Bed scale Reported by Patient Measurement Method Last 24 Hours of Labs: Laboratory Tests 06/26 07 Chemistry Sodium (137 - 145 mmol/L) 136 L Potassium (3.5 - 5.1 mmol/L) 4.0 Chloride (98 - 107 mmol/L) 105 Carbon Dioxide (22 - 30 mmol/L) 23 Anion Gap (5 - 16) 8 BUN (9 - 20 mg/dL) 22 H Creatinine (0.7 - 1.2 mg/dL) 1.1 Estimated GFR (>60 ml/min) > 60 BUN/Creatinine Ratio (7 - 25 %) 20.0 Total Bilirubin (0.2 - 1.3 mg/dL) 1.4 H Direct Bilirubin (< 0.4 mg/dL) 0.4 AST (17 - 59 U/L) 24 ALT (21 - 72 U/L) 33 Alkaline Phosphatase (< 127 U/L) 38 Total Protein (6.3 - 8.2 g/dL) 5.1 L Albumin (3.5 - 5.0 g/dL) 2.6 L Coagulation PT (9.4 - 12.5 SEC) 18.1 H INR (0.90 - 1.17) 1.65 H Hematology CBC w Diff MAN DIFF ORDERED WBC (4.8 - 10.8 /CUMM) 21.1 H RBC (4.70 - 6.10 /CUMM) 3.80 L Hgb (14.0 - 18.0 G/DL) 12.4 L Hct (42 - 52 %) 36.2 L MCV (80.0 - 94.0 FL) 95.1 H MCH (27.0 - 31.0 PG) 32.6 H MCHC (33.0 - 37.0 G/DL) 34.2 RDW (11.5 - 14.5 %) 14.0 Plt Count (130 - 400 /CUMM) 147 MPV (7.4 - 10.4 FL) 8.8 Gran % (42.2 - 75.2 %) 89.9 H Lymphocytes % (20.5 - 51.1 %) 5.5 L Monocytes % (1.7 - 9.3 %) 4.1 Eosinophils % (0 - 5 %) 0.3 Basophils % (0.0 - 2.0 %) 0.2 Absolute Granulocytes (1.4 - 6.5 /CUMM) 18.9 H Segmented Neutrophils (42.2 - 75.2 %) 80 H Band Neutrophils (0.0 - 5.0 %) 13 H Absolute Lymphocytes (1.2 - 3.4 /CUMM) 1.1 L Lymphocytes (20.5 - 51.1 %) 2 L Monocytes (1.7 - 9.3 %) 4 Absolute Monocytes (0.10 - 0.60 /CUMM) 0.9 H Absolute Eosinophils (0.0 - 0.7 /CUMM) 0.1 Basophils (0.0 - 2.0 %) 1 Absolute Basophils (0.0 - 0.2 /CUMM) 0 Platelet Estimate (ADEQUATE) ADEQUATE Normocytic RBCs VERIFIED Normochromic RBCs VERIFIED Imaging Results: PATIENT: GENA CHAVEZ PRESENT AGE: 71 PATIENT ACCOUNT NO: [id number] : 46 LOCATION: [facility] ORDERING PHYSICIAN: Paige CRUZ SERVICE DATE: 06/25/17 EXAM TYPE: CAT - CT ABD & PELVIS W/O IV CONTRAS EXAMINATION: CT ABDOMEN AND PELVIS WITHOUT CONTRAST CLINICAL INFORMATION: Penile pain, right back pain COMPARISON: None TECHNIQUE: Multidetector volumetric imaging was performed from the superior aspect of the liver through the pubic symphysis. Sagittal and coronal reformatted images were obtained on the technologist's workstation. DLP: 300 mGy-cm FINDINGS: A radiodensity seen projecting over the right midlung on the television journalist image is external to patient. LUNG BASES: There is mild bilateral lower lobe dependent atelectasis. Trace aortic valve calcification. LIVER, GALLBLADDER, AND BILIARY TREE: The noncontrast liver is normal in size, shape, and attenuation. The gallbladder is surgically absent. The common bile duct is mildly prominent, not unexpected given prior cholecystectomy. PANCREAS: Unremarkable. SPLEEN: Normal size. Scattered calcified granulomas. ADRENAL GLANDS: Unremarkable. KIDNEYS AND URETERS: No discrete collecting system calcifications. No hydronephrosis or hydroureter. No evidence of ureterolithiasis. The kidneys are normal in contour. No perinephric stranding. Small low-density lesion noted in the upper pole of the right kidney, incompletely characterized but most likely representing a cyst. BLADDER: Unremarkable. No bladder calculi. GASTROINTESTINAL TRACT: The small and large bowel are unremarkable. The appendix is unremarkable. ABDOMINAL WALL: No significant hernia is appreciated. LYMPH NODES: No evidence of pathologic lymphadenopathy on this limited noncontrast examination. VASCULAR: Abdominal aorta is normal in caliber. There is very minimal atherosclerotic calcification. PELVIC VISCERA: The prostate gland is enlarged approximately 7 cm in diameter. There is fat stranding or adjacent to the prostate gland and rectum. There is a 1.4 cm ovoid calcification in the pelvic cul-de-sac of uncertain etiology but could be seen with remotely torsed epiploic appendage. Bilateral vasectomy clips. OSSEOUS STRUCTURES: Mild degenerative changes of the spine. IMPRESSION: No evidence of nephrolithiasis or ureterolithiasis. No hydronephrosis. Prostatomegaly. Additionally, there are inflammatory changes around the prostate gland and rectum which could represent prostatitis or proctitis. Small low-density lesion in the upper pole of the right kidney is incompletely characterized but most likely represents a cyst. Additional incidental findings as noted above. Assessment/Plan Assessment/Plan acute prostatitis: admit for iv abx, when signficantly improved, and based on cultures, change to po abx. Copies To: Fam Crisostomo MD Consult Acknowledgment - Thank you for your consult request. Attending MD Review Statement Attending Statement Attending MD Statement: examined this patient, discuss w/resident/PA/AIR QUALITY MANAGER Attending Assessment/Plan: acute prostatitis: abx and pain management. OK to place brewer if pt in retention at this time. place on flomax 0.4mg/hs and Proscar 5m/day. PO abx x 2 weeks based on pt cultures.
--- NOTE | 2017-06-27 08:11 | Patient Discharge Instructions ---
Discharge Instructions General Discharge Information You were seen/treated for: Sepsis secondary to urinary tract infection with suspected prostatitis Special Instructions: Please follow-up with your primary care doctor after discharge Please follow-up with Dr. Crisostomo after discharge Please take course of antibiotics as directed. Diet Recommended Diet: Regular Activity Activity Self Limited: Yes Acute Coronary Syndrome Inclusion Criteria At DC or during hospital stay patient has or had the following: ACS DIAGNOSIS No Discharge Core Measures Meds if any: Prescribed or Continued at Discharge Meds if any: NOT Prescribed or Continued at Discharge Congestive Heart Failure Inclusion Criteria At DC or during hospital stay patient has or had the following: CHF DIAGNOSIS No Discharge Core Measures Meds if any: Prescribed or Continued at Discharge Meds if any: NOT Prescribed or Continued at Discharge Cerebrovascular accident Inclusion Criteria At DC or during hospital stay patient has or had the following: CVA/TIA Diagnosis No Discharge Core Measures Meds if any: Prescribed or Continued at Discharge Meds if any: NOT Prescribed or Continued at Discharge Venous thromboembolism Inclusion Criteria VTE Diagnosis No VTE Type NONE VTE Confirmed by (Test) NONE Discharge Core Measures - Per Current guidelines, there needs to be overlap - treatment for the first 5 days of Warfarin therapy. - If discharged on Warfarin prior to 5 days of - overlap therapy, the patient will need to be - assessed for post discharge needs including - *Post discharge parental anticoagulation - *Warfarin and/or parental anticoagulation education - *Follow up date to check INR post discharge At least 5 days overlap therapy as Inpatient No Meds if any: Prescribed or Continued at Discharge Note: Overlap Therapy is Warfarin and Anticoagulant Meds if any: NOT Prescribed or Continued at Discharge
[2017-06-27 08:32] LABS: ABSOLUTE BASOPHIL COUNT 0 /CUMM (0.0-0.2); ABSOLUTE EOSINOPHIL COUNT 0.2 /CUMM (0.0-0.7); ABSOLUTE MONOCYTE COUNT 0.7 /CUMM (0.10-0.60); BASOPHIL % 0.3 % (0.0-2.0); GRANULOCYTE % 88.4 % (42.2-75.2); HEMATOCRIT 34.8 % (42-52); MEAN CORPUSCULAR HGB 32.4 PG (27.0-31.0); MEAN CORPUSCULAR HGB CONC 33.8 G/DL (33.0-37.0); MEAN CORPUSCULAR VOLUME 95.9 FL (80.0-94.0); MEAN PLATELET VOLUME 9.1 FL (7.4-10.4); PLATELET COUNT 136 /CUMM (130-400); RBC DISTRIBUTION WIDTH 14.1 % (11.5-14.5); RED BLOOD CELL CT 3.62 /CUMM (4.70-6.10)
[2017-06-27 09:57] LABS: WHITE BLOOD CELL COUNT 15.9 /CUMM (4.8-10.8)
--- NOTE | 2017-06-27 11:34 | PN- Att Addend ---
Attending Addendum Attending Brief Note Patient ambulating, had some chills last night and some low-grade temperature of 101 rest of the vital signs are stable. No new changes on physical. White count today 15,900 no other changes. We'll continue IV antibiotics as per infectious diseases recommendations and reevaluate in the morning. 24 TOTALS 06/27 0000 06/26 0000 Intake Total 4440 1150 Output Total 1800 Balance 2640 1150 Intake, IV 1720 1100 Intake, Oral 2720 50 Number 0 Bowel Movements Output, Urine 1800 Patient 185 lb Weight Weight Bed scale Measurement Method Current Medications Sig/Audra Start time Last Medication Dose Route Stop Time Status Admin Acetaminophen 500 MG .STK-MED ONE 06/26 2236 DC PO 06/26 2237 Acetaminophen 500 MG .STK-MED ONE 06/26 1536 DC PO 06/26 1537 Acetaminophen 500 MG Q6P PRN 06/25 2014 AC 06/26 PO 2239 Ceftriaxone Sodium 1,000 MG DAILY 06/26 1452 AC 06/27 IV 0825 Ciprofloxacin 400 MG Q12H 06/26 0400 DC 06/26 Dextrose/Water 200 ML IV 0351 Enoxaparin Sodium 40 MG DAILY 06/26 1000 AC 06/27 SC 0825 Morphine Sulfate 2 MG Q4P PRN 06/25 2014 IV Oxycodone HCl 5 MG Q6P PRN 06/25 2014 PO Sodium Chloride 1,000 ML Q10H 06/25 2145 DC 06/26 IV 0838 Laboratory Tests 06/27/17 0705: Anion Gap 9, Estimated GFR > 60, BUN/Creatinine Ratio 18.0, CBC w Diff MAN DIFF ORDERED, RBC 3.62 L, MCV 95.9 H, MCH 32.4 H, MCHC 33.8, RDW 14.1, MPV 9.1, Gran % 88.4 H, Lymphocytes % 6.1 L, Monocytes % 4.2, Eosinophils % 1.0, Basophils % 0.3, Absolute Granulocytes 14.0 H, Segmented Neutrophils 76 H, Band Neutrophils 14 H, Absolute Lymphocytes 1.0 L, Lymphocytes 6 L, Monocytes 1 L, Absolute Monocytes 0.7 H, Eosinophils 1, Absolute Eosinophils 0.2, Basophils 2, Absolute Basophils 0, Platelet Estimate VERIFIED BY SMEAR, Normocytic RBCs VERIFIED, Normochromic RBCs VERIFIED 06/26/17 0723: Anion Gap 8, Estimated GFR > 60, BUN/Creatinine Ratio 20.0, Total Bilirubin 1.4 H, Direct Bilirubin 0.4, AST 24, ALT 33, Alkaline Phosphatase 38, Total Protein 5.1 L, Albumin 2.6 L, PT 18.1 H, INR 1.65 H, CBC w Diff MAN DIFF ORDERED, RBC 3.80 L, MCV 95.1 H, MCH 32.6 H, MCHC 34.2, RDW 14.0, MPV 8.8, Gran % 89.9 H, Lymphocytes % 5.5 L, Monocytes % 4.1, Eosinophils % 0.3, Basophils % 0.2, Absolute Granulocytes 18.9 H, Segmented Neutrophils 80 H, Band Neutrophils 13 H, Absolute Lymphocytes 1.1 L, Lymphocytes 2 L, Monocytes 4, Absolute Monocytes 0.9 H, Absolute Eosinophils 0.1, Basophils 1, Absolute Basophils 0, Platelet Estimate ADEQUATE, Normocytic RBCs VERIFIED, Normochromic RBCs VERIFIED 06/25/17 1613: Urine Color YEL, Urine Clarity CLDY H, Urine pH 6.0, Ur Specific [place] 1.025, Urine Protein 100 H, Urine Ketones TRACE H, Urine Nitrite NEG, Urine Bilirubin NEG, Urine Urobilinogen 0.2, Ur Leukocyte Esterase LARGE H, Ur Microscopic SEDIMENT EXAMINED, Urine RBC 50-75 H, Urine WBC PACKD H, Ur Epithelial Cells RARE, Urine Bacteria PACKD H, Urine Hemoglobin LARGE H, Urine Glucose NEG 06/25/17 1215: Anion Gap 13, Estimated GFR > 60, BUN/Creatinine Ratio 18.0, Glucose 108 H, Lactic Acid 1.7, Calcium 9.1, Total Bilirubin 1.2, AST 20, ALT 35, Alkaline Phosphatase 46, Total Protein 6.7, Albumin 3.9, Globulin 2.8, Albumin/Globulin Ratio 1.4, CBC w Diff MAN DIFF ORDERED, RBC 4.83, MCV 95.4 H, MCH 30.4, MCHC 31.8 L, RDW 13.5, MPV 8.5, Gran % 92.4 H, Lymphocytes % 2.3 L, Monocytes % 5.1, Eosinophils % 0.1, Basophils % 0.1, Absolute Granulocytes 17.5 H, Segmented Neutrophils 85 H, Band Neutrophils 7 H, Absolute Lymphocytes 0.4 L, Lymphocytes 3 L, Monocytes 4, Absolute Monocytes 1.0 H, Absolute Eosinophils 0 , Basophils 1, Absolute Basophils 0, Platelet Estimate ADEQUATE, Normocytic RBCs VERIFIED, Normochromic RBCs VERIFIED
--- NOTE | 2017-06-27 12:59 | PN- Infect Dx ---
Subjective Subjective: MAXIMUM TEMPERATURE 100.1. He feels improved with no further urinary symptoms. He does report mild chills last night. Objective Last 24 Hrs of Vital Signs/I&O Vital Signs Date Time Temp Pulse Resp B/P B/P Pulse O2 O2 Flow FiO2 Mean Ox Delivery Rate 06/27 0611 98.7 62 20 122/60 96 Room Air 06/26 2355 99.7 06/26 2338 99.7 06/26 2239 100.1 06/26 2123 100.1 69 18 92/46 94 Room Air 06/26 1440 99.6 70 20 100/60 96 Room Air Intake & Output 06/27 1600 06/27 0800 06/27 0000 Intake Total 120 2020 Output Total 1800 Balance 120 220 Intake, IV 20 Intake, Oral 120 2000 Number 0 Bowel Movements Output, Urine 1800 Physical Exam Other Physical Findings: He appears comfortable in no acute distress Back no CVA tenderness Results Last 24 Hours of Lab Results: Laboratory Tests 06/27 07 Chemistry Sodium (137 - 145 mmol/L) 139 Potassium (3.5 - 5.1 mmol/L) 3.7 Chloride (98 - 107 mmol/L) 108 H Carbon Dioxide (22 - 30 mmol/L) 22 Anion Gap (5 - 16) 9 BUN (9 - 20 mg/dL) 18 Creatinine (0.7 - 1.2 mg/dL) 1.0 Estimated GFR (>60 ml/min) > 60 BUN/Creatinine Ratio (7 - 25 %) 18.0 Hematology CBC w Diff MAN DIFF ORDERED WBC (4.8 - 10.8 /CUMM) 15.9 H RBC (4.70 - 6.10 /CUMM) 3.62 L Hgb (14.0 - 18.0 G/DL) 11.7 L Hct (42 - 52 %) 34.8 L MCV (80.0 - 94.0 FL) 95.9 H MCH (27.0 - 31.0 PG) 32.4 H MCHC (33.0 - 37.0 G/DL) 33.8 RDW (11.5 - 14.5 %) 14.1 Plt Count (130 - 400 /CUMM) 136 MPV (7.4 - 10.4 FL) 9.1 Gran % (42.2 - 75.2 %) 88.4 H Lymphocytes % (20.5 - 51.1 %) 6.1 L Monocytes % (1.7 - 9.3 %) 4.2 Eosinophils % (0 - 5 %) 1.0 Basophils % (0.0 - 2.0 %) 0.3 Absolute Granulocytes (1.4 - 6.5 /CUMM) 14.0 H Segmented Neutrophils (42.2 - 75.2 %) 76 H Band Neutrophils (0.0 - 5.0 %) 14 H Absolute Lymphocytes (1.2 - 3.4 /CUMM) 1.0 L Lymphocytes (20.5 - 51.1 %) 6 L Monocytes (1.7 - 9.3 %) 1 L Absolute Monocytes (0.10 - 0.60 /CUMM) 0.7 H Eosinophils (0 - 5.0 %) 1 Absolute Eosinophils (0.0 - 0.7 /CUMM) 0.2 Basophils (0.0 - 2.0 %) 2 Absolute Basophils (0.0 - 0.2 /CUMM) 0 Platelet Estimate (ADEQUATE) VERIFIED BY SMEAR Normocytic RBCs VERIFIED Normochromic RBCs VERIFIED Last 24 Hours of [place] Results: Urine culture June 25 greater than 100,000 colonies of Escherichia coli resistant to Ampicillin and Bactrim and intermediate to Unasyn Blood cultures June 25 one bottle positive for gram-negative rods Assessment/Plan ID Impression: Improving, with temperatures and white blood cell count decreasing, on Ceftriaxone Day 2 of treatment for Escherichia coli sepsis of urological origin, with concern of prostatitis based on his CT scan. Urology evaluation noted with treatment for BPH to be initiated. Suggestion: 1. Follow-up final blood cultures 2. Further management of BPH per Urology 3. Discontinue Ceftriaxone 4. Restart Ciprofloxacin 500 mg po every 12 hours for 12 more days
[2017-06-27 13:56] VITALS: BP 110/60
--- NOTE | 2017-06-27 13:56 | PN- Housestaff ---
Subjective Follow-up For: sepsis of urological origin, with concern of prostatitis based on his CT scan. Subjective: Seen and examined. Looking in the hospital. Reports chills overnight. MAXIMUM TEMPERATURE 100.1. Urine culture positive for greater than 100,000 colonies of Escherichia coli resistant to Ampicillin and Bactrim and intermediate to Unasyn Review of Systems Constitutional: Reports: see HPI. Objective Last 24 Hrs of Vital Signs/I&O Vital Signs Date Time Temp Pulse Resp B/P B/P Pulse O2 O2 Flow FiO2 Mean Ox Delivery Rate 06/27 0611 98.7 62 20 122/60 96 Room Air 06/26 2355 99.7 06/26 2338 99.7 06/26 2239 100.1 06/26 2123 100.1 69 18 92/46 94 Room Air 06/26 1440 99.6 70 20 100/60 96 Room Air Intake & Output 06/27 1600 06/27 0800 06/27 0000 Intake Total 120 2020 Output Total 1800 Balance 120 220 Intake, IV 20 Intake, Oral 120 2000 Number 0 Bowel Movements Output, Urine 1800 Physical Exam General Appearance: Oriented X3, Cooperative, No Acute Distress Lungs: Clear to Auscultation Abdomen: Soft, No Tenderness Neurological: Normal Speech Current Medications: Current Medications Sig/Audra Start time Last Medication Dose Route Stop Time Status Admin Acetaminophen 500 MG .STK-MED ONE 06/26 2236 DC PO 06/26 2237 Acetaminophen 500 MG .STK-MED ONE 06/26 1536 DC PO 06/26 1537 Acetaminophen 500 MG Q6P PRN 06/25 2014 AC 06/26 PO 2239 Ceftriaxone Sodium 1,000 MG DAILY 06/26 1452 AC 06/27 IV 0825 Ciprofloxacin 400 MG Q12H 06/26 0400 [place] 06/26 Dextrose/Water 200 ML IV 0351 Enoxaparin Sodium 40 MG DAILY 06/26 1000 AC 06/27 SC 0825 Morphine Sulfate 2 MG Q4P PRN 06/25 2014 AC IV Oxycodone HCl 5 MG Q6P PRN 06/25 2014 AC PO Sodium Chloride 1,000 ML Q10H 06/25 2145 [place] 06/26 IV 0838 Last 24 Hrs of Lab/[place] Results Last 24 Hrs of Labs/Mics: Laboratory Tests 06/27/17 0705: Anion Gap 9, Estimated GFR > 60, BUN/Creatinine Ratio 18.0, CBC w Diff MAN DIFF ORDERED, RBC 3.62 L, MCV 95.9 H, MCH 32.4 H, MCHC 33.8, RDW 14.1, MPV 9.1, Gran % 88.4 H, Lymphocytes % 6.1 L, Monocytes % 4.2, Eosinophils % 1.0, Basophils % 0.3, Absolute Granulocytes 14.0 H, Segmented Neutrophils 76 H, Band Neutrophils 14 H, Absolute Lymphocytes 1.0 L, Lymphocytes 6 L, Monocytes 1 L, Absolute Monocytes 0.7 H, Eosinophils 1, Absolute Eosinophils 0.2, Basophils 2, Absolute Basophils 0, Platelet Estimate VERIFIED BY SMEAR, Normocytic RBCs VERIFIED, Normochromic RBCs VERIFIED Assessment/Plan Assessment: The patient is 71-year-old gentleman with no significant past medical history who presented to [facility] on 06/25 with complaint of dysuria. #Sepsis of urological origin with the concern of prostatitis on CT scan Patient presentation with leukocytosis and, bandemia, dirty UA and CT scan finding of prostatomegaly with inflammation, consistent with acute prostatitis. He was febrile overnight. SIRS positive, qSOFA score (SPBP <100) 1 point not high risk. Of note pt is a runner so his BP dose run on the lower side.Ecoli more likely as compared to Gonnorehea/ chlamydia. Pt is in monogamous relationship with his -MAXIMUM TEMPERATURE overnight 100.1 white cell count trending down to 15.9 -Urine culture positive for greater than 100,000 colonies of Escherichia coli resistant to Ampicillin and Bactrim and intermediate to Unasyn -Follow-up blood cultures 1 bottle growing gram-negative rods -The patient's antibiotics were changed to ceftriaxone yesterday we are going to switch to oral ciprofloxacin today -Will monitor patient's white count tomorrow and fever curve if remains afebrile white count trending down and will be discharged on oral ciprofloxacin to complete 2 weeks course of antibiotics. -Flomax 0.4mg/hs and Proscar 5m/day -Urology and ID services on board Regular Diet/DVT prophylaxis with Lovenox/FC Problem List: 1. Prostatitis, acute Pain Ratin Pain Location: n/a Pain Goal: Pain 4 or less Pain Plan: prn Tomorrow's Labs & Rationales: cbc
[2017-06-27] MEDS ORDERED: FLOMAX0.4 M1 PO ×2 (14:24→15:31)
[2017-06-27] MEDS ORDERED: CIPRO500 M1 PO ×2 (14:24→15:31)
[2017-06-27] MEDS ORDERED: FINASTERIDE5 M1 PO ×2 (14:24→15:31)
[2017-06-27 21:27] VITALS: BP 90/58
[2017-06-28 06:57] VITALS: BP 110/64
[2017-06-28 08:29] LABS: ABSOLUTE BASOPHIL COUNT 0.1 /CUMM (0.0-0.2); ABSOLUTE EOSINOPHIL COUNT 0.3 /CUMM (0.0-0.7); ABSOLUTE GRANULOCYTE CT 6.5 /CUMM (1.4-6.5); ABSOLUTE MONOCYTE COUNT 0.7 /CUMM (0.10-0.60); BASOPHIL % 0.8 % (0.0-2.0); EOSINOPHIL % 3.4 % (0-5); GRANULOCYTE % 76.3 % (42.2-75.2); HEMATOCRIT 35.5 % (42-52); MEAN CORPUSCULAR HGB 32.4 PG (27.0-31.0); MEAN CORPUSCULAR HGB CONC 34.1 G/DL (33.0-37.0); PLATELET COUNT 150 /CUMM (130-400); RBC DISTRIBUTION WIDTH 13.9 % (11.5-14.5); RED BLOOD CELL CT 3.73 /CUMM (4.70-6.10); WHITE BLOOD CELL COUNT 8.5 /CUMM (4.8-10.8)
--- NOTE | 2017-06-28 09:35 | PN- Housestaff ---
[facility] Subjective Follow-up For: sepsis of urological origin, with concern of prostatitis based on his CT scan. Complaints: no complaints Subjective: Since seen and examined. Afebrile overnight. White count improved this morning to 8.5. Has been ambulating well Review of Systems Constitutional: Reports: no symptoms. EENTM: Reports: no symptoms. Cardiovascular: Reports: no symptoms. Respiratory: Reports: no symptoms. Gastrointestinal: Reports: no symptoms. Objective Last 24 Hrs of Vital Signs/I&O Vital Signs Date Time Temp Pulse Resp B/P B/P Pulse O2 O2 Flow FiO2 Mean Ox Delivery Rate 06/28 0657 97.9 50 20 110/64 97 06/27 2127 98.4 54 18 90/58 97 Room Air 06/27 2042 60 98/62 06/27 1356 98.9 60 20 110/60 97 Room Air Intake & Output 06/28 1600 06/28 0800 06/28 0000 Intake Total 240 300 Output Total Balance 240 300 Intake, Oral 240 300 Physical Exam General Appearance: Alert, Oriented X3, Cooperative, No Acute Distress Skin: No Rashes, No Breakdown Skin Temp/Moisture Exam: Warm/Dry HEENT: Atraumatic, PERRLA Neck: Supple, No JVD Lymphatic: Cervical nl Cardiovascular: Regular Rate, Normal S1, Normal S2, No Murmurs Lungs: Clear to Auscultation Abdomen: Normal Bowel Sounds, Soft, No Tenderness Extremities: No Edema, Normal Pulses Current Medications: Current Medications Sig/Audra Start time Last Medication Dose Route Stop Time Status Admin Acetaminophen 500 MG Q6P PRN 06/25 2014 AC 06/26 PO 223 Ceftriaxone Sodium 1,000 MG DAILY 06/26 1452 DC 06/27 IV 0825 Ciprofloxacin 500 MG BID 06/27 135 AC 06/27 PO 07/01 135 1859 Enoxaparin Sodium 40 MG DAILY 06/26 1000 AC 06/27 SC 0825 Finasteride 5 MG DAILY 06/27 135 AC 06/27 PO 185 Morphine Sulfate 2 MG Q4P PRN 06/25 2014 AC IV Oxycodone HCl 5 MG Q6P PRN 06/25 2014 AC PO Tamsulosin HCl 0.4 MG AT BEDTIME 06/27 2100 AC 06/27 PO 2041 Last 24 Hrs of Lab/Everardo Results Last 24 Hrs of Labs/Mics: Laboratory Tests 06/28/17 0734: CBC w Diff NO MAN DIFF REQ, RBC 3.73 L, MCV 95.0 H, MCH 32.4 H, MCHC 34.1, RDW 13.9, MPV 9.0, Gran % 76.3 H, Lymphocytes % 11.8 L, Monocytes % 7.7, Eosinophils % 3.4, Basophils % 0.8, Absolute Granulocytes 6.5, Absolute Lymphocytes 1.0 L, Absolute Monocytes 0.7 H, Absolute Eosinophils 0.3, Absolute Basophils 0.1 Assessment/Plan Assessment: The patient is 71-year-old gentleman with no significant past medical history who presented to [facility] ED on 06/25 with complaint of dysuria. #Sepsis of urological origin? prostatitis on CT scan: Sepsis resolved -Afebrile overnight. White count down today. -Urine culture positive for greater than 100,000 colonies of Escherichia coli -Follow-up blood cultures 1 bottle growing gram-negative rods -Initially patient was on ceftriaxone, no change to ciprofloxacin. Patient will be discharged home to finish to complete weeks of Cipro. -Flomax 0.4mg/hs and Proscar 5m/day Regular Diet/DVT prophylaxis with Lovenox/FC Problem List: 1. Prostatitis, acute Pain Ratin Pain Location: na Pain Goal: Pain 4 or less Pain Plan: Tylenol Tomorrow's Labs & Rationales: None Angelia PHAN,[facility] 06/28/17 1423: Attending MD Review Statement Attending Statement Attending MD Statement: examined this patient, discuss w/resident/PA/RELIGION TEACHER, agreed w/resident/PA/RELIGION TEACHER, discussed with family, reviewed EMR data (avail), discussed with nursing, discussed with case mgmt, reviewed images, amended to note Attending Assessment/Plan: Seen stable being dcd cont abx pt to see urology [place] to determine if he needs longer duration of abx
== END 2017-06-28 11:02 | DRG 872 ==
LOC: ERH 10:47 → ERHI 17:35 → 2NB 17:35 → ENRESERV 21:04 → ENTRNSPT 21:08 → 2NB 21:21 → EDTRNSPTSTS 21:22 → 2NB 21:23 → CMPTRNSPT 21:31 → 2NB 06-26 20:14 → ENPENDDIS 06-28 09:35 → 2NB 06-28 11:02
PROVIDERS: Internal Medicine; Physician Assistant; Student in an Organized Health Care Education/Training Program
DX: A41.51 Sepsis due to Escherichia coli [E. coli] (principal); N39.0 Urinary tract infection, site not specified; N41.0 Acute prostatitis; N40.1 Benign prostatic hyperplasia with lower urinary tract symptoms; R33.8 Other retention of urine; Z87.891 Personal history of nicotine dependence
CPT/HCPCS: 2NBSP; 36592; 74176; 81001; 82436; 87040; 87086; 96374; 96375; 96376; J0131; J0696; J0744; J1580; J1650; J1885; J7060